=== PATIENT | male | born 1965 | race Caucasian/White ===

== ENCOUNTER 2017-05-31 22:12 | Emergency (ER) | payer OTHER ==
[~2017-05-31] VITALS: Ht 170.2 cm; Wt 83.9 kg
[2017-05-31 22:25] VITALS: Ht 170.2 cm; Wt 83.9 kg
[2017-06-01 00:38] VITALS: BP 148/99
== END 2017-06-01 00:38 | disposition home or self-care (01) ==
LOC: ED 22:12
DX: S01.81XA Laceration without foreign body of other part of head, initial encounter (principal); W22.8XXA Striking against or struck by other objects, initial encounter; Y93.89 Activity, other specified; Y92.89 Other specified places as the place of occurrence of the external cause; Y99.8 Other external cause status
CPT/HCPCS: J2001

== ENCOUNTER 2017-06-08 14:57 | Emergency (ER) | payer OTHER ==
[~2017-06-08] VITALS: Ht 170.2 cm; Wt 81.6 kg
[2017-06-08 15:03] VITALS: BP 123/99; Ht 170.2 cm; Wt 81.6 kg
== END 2017-06-08 15:44 | disposition home or self-care (01) ==
LOC: ED 14:57
DX: S01.81XD Laceration without foreign body of other part of head, subsequent encounter (principal); X58.XXXD Exposure to other specified factors, subsequent encounter

== ENCOUNTER 2017-11-06 15:28 | Emergency (ER) | payer OTHER ==
[~2017-11-06] VITALS: Ht 170.2 cm; Wt 82.6 kg
[2017-11-06 15:36] VITALS: Ht 170.2 cm; Wt 82.6 kg
[2017-11-06 18:34] VITALS: BP 145/90
== END 2017-11-06 18:34 | disposition home or self-care (01) ==
LOC: ED 15:28
DX: R19.7 Diarrhea, unspecified (principal); E86.0 Dehydration; R10.9 Unspecified abdominal pain; R50.9 Fever, unspecified; R51 Headache
CPT/HCPCS: J1885